=== PATIENT | male | born 1985 | race Caucasian/White ===

== ENCOUNTER → 2017-07-29 | Outpatient (CLI) | payer BC ==
[~2017-07-29] MED LIST: NO HOME MEDICATIONS
== END ==
LOC: MHCPAIN 08:57
DX: G89.29 Other chronic pain (principal); M47.27 Other spondylosis with radiculopathy, lumbosacral region; M53.3 Sacrococcygeal disorders, not elsewhere classified
CPT/HCPCS: G0463

== ENCOUNTER → 2017-08-08 | Outpatient (CLI) | payer BC | LOC: MHCPAIN 09:44 | DX: M47.817 Spondylosis without myelopathy or radiculopathy, lumbosacral region (principal); M51.27 Other intervertebral disc displacement, lumbosacral region | CPT/HCPCS: J1100; Q9967 ==

== ENCOUNTER → 2017-08-26 | Outpatient (CLI) | payer BC | LOC: MHCPAIN 11:21 | DX: G89.29 Other chronic pain (principal); M47.817 Spondylosis without myelopathy or radiculopathy, lumbosacral region; M54.16 Radiculopathy, lumbar region; M53.3 Sacrococcygeal disorders, not elsewhere classified | CPT/HCPCS: G0463 ==

== ENCOUNTER → 2017-11-20 | Outpatient (CLI) | payer BC | LOC: MHCPAIN 08:50 | DX: G89.29 Other chronic pain (principal); M47.817 Spondylosis without myelopathy or radiculopathy, lumbosacral region; M54.16 Radiculopathy, lumbar region; M53.3 Sacrococcygeal disorders, not elsewhere classified | CPT/HCPCS: G0463 ==

== ENCOUNTER → 2018-03-04 | Outpatient (CLI) | payer BC | LOC: MHCPAIN 09:00 | DX: G89.29 Other chronic pain (principal); M47.817 Spondylosis without myelopathy or radiculopathy, lumbosacral region; M54.16 Radiculopathy, lumbar region; M53.3 Sacrococcygeal disorders, not elsewhere classified | CPT/HCPCS: G0463 ==

== ENCOUNTER → 2018-08-22 | Outpatient (CLI) | payer BC | LOC: COL.RAD 10:19 | DX: K76.0 Fatty (change of) liver, not elsewhere classified (principal) ==

== ENCOUNTER → 2018-09-23 | Outpatient (CLI) | payer BC | LOC: COL.RAD 09:45 | DX: Z85.47 Personal history of malignant neoplasm of testis (principal); Z90.79 Acquired absence of other genital organ(s) ==

== ENCOUNTER → 2021-12-04 | Outpatient (CLI) | payer BC | LOC: COL.RAD 12-01 09:00 | DX: M25.861 Other specified joint disorders, right knee (principal); M22.42 Chondromalacia patellae, left knee ==